=== PATIENT | female | born 1940 | race Caucasian/White ===

== ENCOUNTER → 2018-07-11 | Outpatient (CLI) | payer OTHER ==
[~2018-07-11] MED LIST: ADULT LOW DOSE81 MG PO; AMARYL1 MG PO; AMARYL4 MG PO; HYDROCODONE PO; LANTUS SOL100 UNIT/1 SQ; LANTUSSOLASTAR SUBQ; LIPITOR 10 MG10 M1 PO; MECLIZINE HCL25 MG PO; OMEPRAZOLE40 MG PO; ONE A DAY PREN1 EACH PO; PRILOSEC40 MG PO; PROZAC 20 MG20 MG PO; RANITIDINE HCL300 M1 PO; REPAGLINIDE2 MG PO; SYNTHROID PO; TOPROL XL25 MG PO; TRANSDERM-SCOP1 EACH TD; ZANTAC 150MG T150 MG PO
== END ==
LOC: M.ULTRA 07:04
DX: D69.6 Thrombocytopenia, unspecified (principal); C50.412 Malignant neoplasm of upper-outer quadrant of left female breast; E11.9 Type 2 diabetes mellitus without complications; K21.9 Gastro-esophageal reflux disease without esophagitis; Z17.1 Estrogen receptor negative status [ER-]

== ENCOUNTER → 2018-08-10 | Outpatient (CLI) | payer OTHER | LOC: M.RAD 10:15 | DX: R92.8 Other abnormal and inconclusive findings on diagnostic imaging of breast (principal); C50.912 Malignant neoplasm of unspecified site of left female breast; E11.9 Type 2 diabetes mellitus without complications; Z90.12 Acquired absence of left breast and nipple; Z90.710 Acquired absence of both cervix and uterus ==

== ENCOUNTER → 2019-08-15 | Outpatient (CLI) | payer OTHER | LOC: M.RAD 11:00 | DX: Z12.31 Encounter for screening mammogram for malignant neoplasm of breast (principal); M85.88 Other specified disorders of bone density and structure, other site ==

== ENCOUNTER → 2020-08-18 | Outpatient (CLI) | payer OTHER | LOC: M.RAD 10:33 | PROVIDERS: ATTEND Family Medicine | DX: Z12.31 Encounter for screening mammogram for malignant neoplasm of breast (principal) ==

== ENCOUNTER → 2021-08-18 | Outpatient (CLI) | payer OTHER | LOC: M.RAD 13:56 | PROVIDERS: ATTEND Family Medicine | DX: Z12.31 Encounter for screening mammogram for malignant neoplasm of breast (principal) ==

== ENCOUNTER 2021-10-01 13:23 | Emergency (ER) | payer OTHER ==
[~2021-10-01] VITALS: Ht 165.1 cm; Wt 95.3 kg
[2021-10-01] MEDS ORDERED: COZAAR 25 MG TA25 M1 PO (13:35)
[2021-10-01] MEDS ORDERED: LIPITOR10 MG PO (13:35)
[2021-10-01] MEDS ORDERED: OMEPRAZOLE40 MG PO (13:35)
[2021-10-01] MEDS ORDERED: FAMOTIDINE 40 M40 M1 PO (13:35)
[2021-10-01] MEDS ORDERED: MIRALAX119 GM PO (13:36)
[2021-10-01] MEDS ORDERED: HYDROCODON-ACE1 EAC7 PO (14:09)
[2021-10-01] MEDS ORDERED: CEPHALEXIN500 MG PO (14:10)
[2021-10-01 14:13] VITALS: BP 174/76
== END 2021-10-01 14:13 | disposition home or self-care (01) ==
LOC: M.ERS 13:23
DX: S60.453A Superficial foreign body of left middle finger, initial encounter (principal); E11.9 Type 2 diabetes mellitus without complications; K21.9 Gastro-esophageal reflux disease without esophagitis; Z90.710 Acquired absence of both cervix and uterus; Z90.49 Acquired absence of other specified parts of digestive tract; Z79.899 Other long term (current) drug therapy; Z88.8 Allergy status to other drugs, medicaments and biological substances; X58.XXXA Exposure to other specified factors, initial encounter; Y93.89 Activity, other specified; Y92.89 Other specified places as the place of occurrence of the external cause; Y99.8 Other external cause status